=== PATIENT | female | born 1945 | race Caucasian/White ===

== ENCOUNTER 2019-03-07 08:21 | Outpatient (CLI) | payer OTHER ==
[~2019-03-07 08:21] MED LIST: INTESTINEX1 CAP PO
== END 2019-03-07 08:28 | disposition home or self-care (01) ==
LOC: TOM 08:21
DX: K56.51 Intestinal adhesions [bands], with partial obstruction (principal); K57.30 Diverticulosis of large intestine without perforation or abscess without bleeding